=== PATIENT | male | born 1955 | race Caucasian/White ===

== ENCOUNTER 2022-03-23 07:00 | Day surgery (SDC) | payer MEDICARE, BC ==
[~2022-03-23] VITALS: Ht 172.7 cm; Wt 102.3 kg
[~2022-03-23 07:00] MED LIST: ALLOPURINOL300 MG PO; COLCRYS0.6 MG PO; FLOMAX0.4 MG PO; LISINOPRIL-HCT1 EACH PO; LOFIBRA160 MG PO; PLAVIX75 MG PO
--- NOTE | 2022-03-23 09:22 | NUR ---
03/23/22 0922 Davies,Asiya Braxton PATIENT ARRIVED TO PACU AWAKE, BUT DROWSY. NOW SLEEPING. RESPONDS EASILY TO VOICE. DENIES PAIN.
--- NOTE | 2022-03-23 10:58 | NUR ---
PT ALERT, ORIENTED AND SUPPORTED BY HIS RAIZA. PT HAS HAD PREVIOUS SCOPES AND SEEMS TO BE PREPARED. RAIZA WILL RETURN FOR DC, HAD PRAYER, WILL FOLLOW
--- NOTE | 2022-03-27 19:03 | OR ---
[facility] [address], [place] [address] Signed DATE OF OPERATION: 03/23/2022 SURGEON: Genesis Hatfield MD PREOPERATIVE DIAGNOSES: 1. History of adenomatous polyps in 2015. 2. History of cerebrovascular accident, on Plavix maintenance therapy. POSTOPERATIVE DIAGNOSES: 1. Minimal diverticular changes. 2. Polyps x2 (proximal ascending colon and sigmoid). PROCEDURES: Total colonoscopy to cecum with cold morcellation polypectomy x1 and cold snare polypectomy x1. ANESTHESIA: Intravenous sedation, fentanyl 100 mcg and Versed 6 mg total. INDICATIONS: This 66-year-old white man is a patient of Candy Olivo PA-C previously. He is known to me from 2015 having undergone polypectomy x2. He has since had a cerebrovascular accident, which is significant. He is maintained on Plavix therapy. He has been off his Plavix since Saturday (today is Saturday), anticipating surveillance colonoscopy. He is symptom free currently and has no family history of colon cancer. He understands the risks of bleeding, infection, and perforation related to colonoscopy and wished to proceed. FINDINGS: There was a small polyp in the junction between the cecum and the right colon, which was excised with cold morcellation technique. Another small polyp was noted at about 40 cm in the sigmoid, excised with cold snare technique. There were few arteriovenous malformations of the rectum of no significance at this time. DESCRIPTION OF PROCEDURE: The patient was brought to the endoscopy suite and placed in lateral decubitus position given intravenous sedation to the point of slurred speech and nystagmus. Full cardiopulmonary monitoring was maintained. Digital rectal examination was normal. Electronically Signed By: GENESIS HATFIELD MD 03/27/221902 PATIENT NAME: JERSEY LANDRY OPERATIVE REPORT DATE OF : 55 REPORT #: [id number] PHYSICIAN: GENESIS HATFIELD MD PCP: NELDA AHUMADA REPORT IS CONFIDENTIAL AND NOT TO BE RELEASED WITHOUT AUTHORIZATION [facility] [address], [place] [address] Signed An Olympus video colonoscope was passed into the rectum and manipulated throughout the colon ultimately intubating the cecum itself. The prep was adequate. Fair amount of irrigation was required. The appendiceal orifice was easily identified and normal. Scope was carefully withdrawn. In the proximal ascending colon, there was a small sessile polyp, this excised with cold morcellation technique with multiple bites. The scope was then withdrawn and examination showed no abnormality until the mid sigmoid colon at about 40 cm, where a small sessile polyp was noted, this was excised with cold snare polypectomy technique completely. Further withdrawal showed no other abnormalities except the rectum where there were few arteriovenous malformations of little clinical significance. Retroflexed view was otherwise normal. Scope was removed. The patient was taken to the recovery room in good condition. CONCLUDING DIAGNOSES: 1. Polyps x2, minimal diverticular changes. 2. Arteriovenous malformations of rectum. PLAN: Recommend repeat colonoscopy in 5 years or sooner if symptoms should occur. He can restart his Plavix without delay at this point. MD BEVERLEY Prado/KARO /[id number] cc: Candy Olivo PA-C Copies: ~ Electronically Signed By: GENESIS HATFIELD MD 03/27/22 1903 PATIENT NAME: JERSEY LANDRY OPERATIVE REPORT DATE OF : 55 REPORT #: [id number] PHYSICIAN: GENESIS HATFIELD MD PCP: NELDA AHUMADA REPORT IS CONFIDENTIAL AND NOT TO BE RELEASED WITHOUT AUTHORIZATION
--- NOTE | 2022-04-02 06:14 | PATH ---
[facility] [address], [place] [address] Signed SPECIMEN(S): A ASCENDING/RIGHT COLON POLYP SPECIMEN(S): B DESCENDING/LEFT COLON POLYP SPECIMEN SOURCE: A. ASCENDING/RIGHT COLON POLYP B. DESCENDING/LEFT COLON POLYP CLINICAL HISTORY: Colonoscopy. History of polyps. Post: Polyps x 2, diverticulosis. FINAL PATHOLOGIC DIAGNOSIS: A. Colon, ascending/right, polypectomy: - Tubular adenoma, one fragment. - Additional fragments of colonic epithelium demonstrate benign intramucosal lymphoid nodules. - There is no evidence of high-grade dysplasia or malignancy. B. Colon, descending/left, polypectomy: - Tubular adenoma, one fragment. - An additional fragment of colonic epithelium is within normal limits. - There is no evidence of high-grade dysplasia or malignancy. [id number] MICROSCOPIC EXAMINATION: Histologic sections of all submitted blocks are examined by light microscopy. These findings, together with the gross examination, support the pathologic diagnosis. GROSS DESCRIPTION: Two specimens are received in two containers labeled with "CG." A. The specimen, labeled "CG, 1," and designated on the requisition "ascending/right polypectomy," is received in formalin and consists of four fragments of pink-carballo tissue (0.1-0.6 cm in greatest dimension). The specimen is submitted entirely in cassette (A1). B. The specimen, labeled "CG, 2," and designated on the requisition "descending/left polypectomy," is received in formalin and consists of two fragments of pink-carballo tissue (0.2 cm in greatest dimension). The specimen is submitted entirely in cassette (B1). AC (under the direct supervision of a pathologist) The Gross Description was prepared using a voice recognition system. The report was reviewed for accuracy; however, sound-alike word errors, addition and/or deletions may occur. If there is any PATIENT NAME: JERSEY LANDRY PATHOLOGY DATE OF : 55 REPORT #: [id number] PHYSICIAN: GUS FERNANDEZ PCP: NEDLA AHUMADA REPORT IS CONFIDENTIAL AND NOT TO BE RELEASED WITHOUT AUTHORIZATION [facility] [address], [place] [address] Signed question about this report, please contact Client Services. PERFORMING LABORATORY: The technical component was performed by [facility], [address] [place] [id number] (CLIA# [id number]). The professional interpretation [facility] by [facility], [facility], [facility] [address] [address] (CLIA#: [id number]). Diagnostician: Armando Mcknight MD Pathologist Electronically Signed 03/28/2022 Copies: ~ PATIENT NAME: JERSEY LANDRY PATHOLOGY DATE OF : 55 REPORT #: [id number] PHYSICIAN: GUS PATHOLOGY PCP: NELAD AHUMADA REPORT IS CONFIDENTIAL AND NOT TO BE RELEASED WITHOUT AUTHORIZATION
== END 2022-03-23 09:52 | disposition home or self-care (01) ==
LOC: DS 07:00 → OPS 07:00 → DS 08:45 → OPS 08:45 → DS 09:15 → OPS 09:52
PROVIDERS: ATTEND Surgery
PROC: 0DBN8ZZ Excision of Sigmoid Colon, Via Natural or Artificial Opening Endoscopic (ICD-10-PCS; 2022-03-23)
PROC: 0DBK8ZZ Excision of Ascending Colon, Via Natural or Artificial Opening Endoscopic (ICD-10-PCS; principal; 2022-03-23 08:45)
DX: Z12.11 Encounter for screening for malignant neoplasm of colon (principal); D12.2 Benign neoplasm of ascending colon; D12.4 Benign neoplasm of descending colon; I10 Essential (primary) hypertension; I69.954 Hemiplegia and hemiparesis following unspecified cerebrovascular disease affecting left non-dominant side; I69.998 Other sequelae following unspecified cerebrovascular disease; R26.89 Other abnormalities of gait and mobility; Z79.01 Long term (current) use of anticoagulants; Z87.891 Personal history of nicotine dependence
CPT/HCPCS: 88305; J2250; J3010; J7121